=== PATIENT | male | born 1975 | race African-American/Black ===

== ENCOUNTER 2017-07-08 21:37 | Observation (INO) ==
[2017-07-08] MEDS ORDERED: DIPH/TET/ACEL PERT BOOSTER VACCINE 0.5 ML VIAL IM ONE ×2 (22:18→22:20)
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
[2017-07-09] MEDS: SODIUM CHLORIDE 0.9% 1,000 ML IV SCH ×2 (00:21→07:24)
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
[2017-07-09 07:39] VITALS: BP 140/93
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
== END 2017-07-09 11:23 | disposition home or self-care (01) ==
LOC: N.ED 21:37 → N.EDINP 21:37 → N.3E 23:11
PROVIDERS: ADMIT Surgery; ATTEND Surgery